=== PATIENT | male | born 2000 ===

== ENCOUNTER 2023-12-21 07:58 | Observation (INO) | payer OTHER ==
[2023-12-21] MEDS: Ondansetron 4 MG/2 ML SDV IVPUSH ONE (08:39)
[2023-12-21] MEDS: Morphine 4 MG/ML Syringe IVPUSH ONE (08:39)
[2023-12-21] MEDS: Sodium Chloride 0.9% 1,000 ML IV ONE (08:39)
[2023-12-21] MEDS: Iopamidol 755 MG/ML 500 ML Multipack Bottle IVPUSH STA (09:36)
[2023-12-21 09:39] LABS: BASOPHILS ABSOLUTE AUTO 0.03 K/uL (0.00-0.20); BASOPHILS PERCENT AUTO 0.2 % (0.0-1.0); EOSINOPHILS ABSOLUTE AUTO 0.01 K/uL (0.00-0.45); EOSINOPHILS PERCENT AUTO 0.1 % (0.0-6.0); HEMATOCRIT 37.3 % (42.0-52.0); HEMOGLOBIN 13.6 g/dL (14.0-18.0); IMMATURE GRAN ABSOLUTE AUTO 0.08 K/uL (0.00-0.05); IMMATURE GRAN PERCENT AUTO 0.4 % (0.0-0.4); LYMPHOCYTES ABSOLUTE AUTO 0.75 K/uL (1.00-4.80); LYMPHOCYTES PERCENT AUTO 4.1 % (24.0-44.0); MEAN CORPUSCULAR HEMOGLOBIN 29.6 pg (28.0-32.0); MEAN CORPUSCULAR HGB CONC 36.5 g/dL (32.0-36.0); MEAN CORPUSCULAR VOLUME 81.3 fL (83.0-99.0); MEAN PLATELET VOLUME 8.8 fL (9.4-12.4); MONOCYTES ABSOLUTE AUTO 0.99 K/uL (0.00-0.80); MONOCYTES PERCENT AUTO 5.4 % (0.0-8.0); NEUTROPHILS ABSOLUTE AUTO 16.31 K/uL (1.80-7.70); NEUTROPHILS PERCENT AUTO 89.8 % (41.0-71.0); PLATELET COUNT,PLT 239 K/uL (150-400); RED BLOOD CELL COUNT 4.59 M/uL (4.52-5.90); WHITE BLOOD CELL COUNT,WBC 18.17 K/uL (3.9-11.3)
[2023-12-21 09:52] LABS: INR 1.22 (0.86-1.11); PTT,PARTIAL THROMBOPLSTIN TIME 24.5 SEC (23.9-30.7)
[2023-12-21] MEDS: Lidocaine/Epineph/Tetracaine 3 ML Syringe TOP ONE (09:59)
[2023-12-21 10:07] LABS: A/G RATIO 1.4 (0.9-1.6); ALANINE AMINOTRANSFERASE,ALT 27 IU/L (14-63); ALBUMIN 3.7 g/dL (3.4-5.0); ALKALINE PHOSPHATASE 53 U/L (46-116); ASPARTATE AMNIOTRANSFERASE,AST 26 IU/L (15-37); BILIRUBIN TOTAL 0.6 mg/dL (0.2-1.0); BLOOD UREA NITROGEN,BUN 18 mg/dL (7.0-18.0); CALCIUM 8.4 mg/dL (8.5-10.1); CHLORIDE,CL 108 mmol/L (98-107); EST CRCL DRUG DOSING (CG) 105.28 mL/min; GLUCOSE RANDOM 103 mg/dL (74-106); LIPASE 130 U/L (16-77); MAGNESIUM 1.5 mg/dL (1.8-2.4); POTASSIUM,K 3.8 mmol/L (3.5-5.1); PROTEIN TOTAL,TP 6.4 g/dL (6.4-8.2); SODIUM,NA 142 mmol/L (136-148)
[2023-12-21 10:11] LABS: ESTIMATED GFR 110 mL/min (>60); ETHANOL BLOOD MEDICAL < 3.0 mg/dL
[2023-12-21] MEDS ORDERED: Sodium Chloride 0.9% 10 ML Syringe FLUSH PRN (11:56)
[2023-12-21] MEDS ORDERED: Ondansetron 4 MG/2 ML SDV IVPUSH PRN (11:56)
[2023-12-21] MEDS ORDERED: Sodium Chloride 0.9% 2.5 ML Syringe FLUSH PRN (11:56)
[2023-12-21] MEDS ORDERED: Naloxone 0.4 MG/ML SDV IVPUSH PRN (11:56)
[2023-12-21] MEDS ORDERED: HYDROmorphone 2 MG/ML Syringe IVPUSH PRN (11:56)
[2023-12-21] MEDS: Acetaminophen/HYDROcodone 325-5 MG Tab PO PRN (13:25)
[2023-12-21] MEDS: Mupirocin Oint 22 GM Tube TOP ONE (13:26)
[2023-12-21 14:57] LABS: BILIRUBIN,URINE NEGATIVE (NEGATIVE); COLOR,URINE YELLOW; GLUCOSE,URINE NEGATIVE (NEGATIVE); KETONES,URINE NEGATIVE (NEGATIVE); LEUKOCYTE ESTERASE,URINE NEGATIVE (NEGATIVE); NITRITE,URINE NEGATIVE (NEGATIVE); OCCULT BLOOD,URINE LARGE (NEGATIVE); PROTEIN,URINE NEGATIVE (NEGATIVE); UROBILINOGEN,URINE 0.2 EU/dL (<2.0)
[2023-12-21 15:06] LABS: AMPHETAMINES SCREEN, URINE NEGATIVE (CUTOFF=500); BARBITURATE SCREEN,URINE NEGATIVE (CUTOFF=200); BENZODIAZEPINES SCREEN,URINE NEGATIVE (CUTOFF=150); BUPRENORPHINE SCREEN,URINE NEGATIVE (CUTOFF=10); METHADONE SCREEN, URINE NEGATIVE (CUTOFF=200); METHAMPHETAMINES SCREEN, URINE NEGATIVE (CUTOFF=500); OXYCODONE SCREEN,URINE NEGATIVE (CUT0FF=100); PCP SCREEN,URINE NEGATIVE (CUTOFF=25); THC SCREEN,URINE 20 NG/ML NEGATIVE (CUTOFF=50)
[2023-12-21 15:13] LABS: APPEARANCE,URINE HAZY
[2023-12-21 15:20] LABS: BACTERIA,URINE FEW (NEGATIVE); EPITHELIAL CELLS,URINE RARE (NONE-FEW); WBC,URINE 0-1 (0-5/HPF)
[2023-12-22] MEDS: Acetaminophen 325 MG Tab PO PRN (09:43)
== END 2023-12-22 11:18 | disposition home or self-care (01) ==
LOC: MW.ED 07:58 → MW.MS 11:30
PROVIDERS: ADMIT Surgery; ATTEND Surgery
DX: M79.10 Myalgia, unspecified site (principal)
CPT/HCPCS: 12004; 36415; 70450; 70486; 71260; 72125; 72128; 72131; 73080; 74177; 80053; 80305; 80307; 81001; 83690; 83735; 84484; 85025; 85610; 85730; 86850; 86900; 86901; 93005; 96361; 96374; 96375; 99285; A9270; G0378; J2270; J2405; J7030; Q9967; 93010; 99284

== ENCOUNTER 2024-04-17 13:27 | Emergency (ER) | payer SELFPAY ==
[2024-04-17 13:51] LABS: BASOPHILS ABSOLUTE AUTO 0.02 K/uL (0.00-0.20); BASOPHILS PERCENT AUTO 0.4 % (0.0-1.0); EOSINOPHILS ABSOLUTE AUTO 0.01 K/uL (0.00-0.45); EOSINOPHILS PERCENT AUTO 0.2 % (0.0-6.0); HEMATOCRIT 39.3 % (42.0-52.0); HEMOGLOBIN 14.2 g/dL (14.0-18.0); LYMPHOCYTES ABSOLUTE AUTO 1.31 K/uL (1.00-4.80); LYMPHOCYTES PERCENT AUTO 23.9 % (24.0-44.0); MEAN CORPUSCULAR HEMOGLOBIN 28.8 pg (28.0-32.0); MEAN CORPUSCULAR HGB CONC 36.1 g/dL (32.0-36.0); MEAN CORPUSCULAR VOLUME 79.7 fL (83.0-99.0); MEAN PLATELET VOLUME 8.8 fL (9.4-12.4); MONOCYTES PERCENT AUTO 7.3 % (0.0-8.0); NEUTROPHILS ABSOLUTE AUTO 3.75 K/uL (1.80-7.70); NEUTROPHILS PERCENT AUTO 68.2 % (41.0-71.0); PLATELET COUNT,PLT 245 K/uL (150-400); RED BLOOD CELL COUNT 4.93 M/uL (4.52-5.90); WHITE BLOOD CELL COUNT,WBC 5.49 K/uL (3.9-11.3)
[2024-04-17 14:36] LABS: A/G RATIO 1.7 (0.9-1.6); ALANINE AMINOTRANSFERASE,ALT 18 IU/L (14-63); ALBUMIN 4.6 g/dL (3.4-5.0); ALKALINE PHOSPHATASE 62 U/L (46-116); ASPARTATE AMNIOTRANSFERASE,AST 13 IU/L (15-37); BILIRUBIN TOTAL 0.9 mg/dL (0.2-1.0); BLOOD UREA NITROGEN,BUN 19 mg/dL (7.0-18.0); CARBON DIOXIDE,CO2 28.2 mmol/L (21.0-32.0); CHLORIDE,CL 102 mmol/L (98-107); EST CRCL DRUG DOSING (CG) 101.21 mL/min; GLUCOSE RANDOM 138 mg/dL (74-106); POTASSIUM,K 3.6 mmol/L (3.5-5.1); PROTEIN TOTAL,TP 7.3 g/dL (6.4-8.2); SODIUM,NA 140 mmol/L (136-148)
[2024-04-17 14:52] LABS: ESTIMATED GFR 110 mL/min (>60)
== END 2024-04-17 16:28 | disposition home or self-care (01) ==
LOC: MW.ED 13:27
DX: R07.9 Chest pain, unspecified (principal)
CPT/HCPCS: 36415; 71046; 71046-26; 80053; 84484; 85025; 85379; 93005; 99285